=== PATIENT | female | born 1965 | race Caucasian/White ===

== ENCOUNTER 2019-07-22 11:09 | Emergency (ER) | payer BC ==
[~2019-07-22] VITALS: Ht 157.5 cm; Wt 81.6 kg
[2019-07-22 11:15] VITALS: BP 158/85
--- NOTE | 2019-07-22 11:17 | NUR ---
Patient transferred to bed 7 via wheelchair by tech. RN evaluating patient at bedside.
--- NOTE | 2019-07-22 11:18 | NUR ---
54 Y/O FEMALE C/O LT HAND PAIN S/P FALL LAST NIGHT. PT STATES HER LEGS GOT WEAK AND GAVE OUT AND CAUGHT HERSELF WITH HER HAND. +SWELLING NOTED TO HAND. +CMS, +PULSES. CAP REFILL <2 SECONDS. SKIN INTACT, WARM AND DRY TO THE TOUCH. 3/10 ACHING PAIN PER PT. HOB ELEVATED, X 1 SIDE RAIL RAISED MEDHX: DM, HTN, 4 STROKES
--- NOTE | 2019-07-22 11:19 | NUR ---
Dr. Yañez is evaluating the patient at bedside.
--- NOTE | 2019-07-22 11:25 | NUR ---
iv technician at bedside.
--- NOTE | 2019-07-22 12:00 | NUR ---
APPLIED VOLAR SPLINT TO LEFT ARM WITHOUT ANY ISSUES. APPLIED SLING TO LEFT ARM WITHOUT ANY ISSUES
[2019-07-22 12:04] VITALS: BP 158/85
--- NOTE | 2019-07-22 12:04 | NUR ---
Patient discharged with v/s stable. Written and verbal after care instructions given and explained. Patient verbalized understanding. Wheel Chair Assisted with to car. All questions addressed prior to discharge. Advised to follow up with PMD. left hand x-ray cd handed to pt --instructed to keep hand elevated
== END 2019-07-22 12:03 | disposition home or self-care (01) ==
LOC: MED 11:09
DX: S62.393A Other fracture of third metacarpal bone, left hand, initial encounter for closed fracture (principal); E11.9 Type 2 diabetes mellitus without complications; Z86.73 Personal history of transient ischemic attack (TIA), and cerebral infarction without residual deficits; Z90.49 Acquired absence of other specified parts of digestive tract; W19.XXXA Unspecified fall, initial encounter; Y93.89 Activity, other specified; Y92.89 Other specified places as the place of occurrence of the external cause; Y99.8 Other external cause status
CPT/HCPCS: 29105; 73130; 99283